=== PATIENT | male | born 1980 | race Caucasian/White ===

== ENCOUNTER 2022-05-02 07:15 | Day surgery (SDC) | payer OTHER ==
[~2022-05-02] VITALS: Ht 182.9 cm; Wt 98.0 kg
[2022-05-02] VITALS (219 sets, daily range): BP systolic 100–160; BP diastolic 55–114
[2022-05-02 07:39] LABS: HEMATOCRIT 45.2 % (39.0-50.0); HEMOGLOBIN 16.1 g/dl (14.0-18.0); IMMATURE GRANULOCYTES 0.2 % (0.0-5.0); MEAN CORPUSCULAR HGB 31.7 pG CALC (26.0-32.0); MEAN CORPUSCULAR HGB CONC 35.6 g/dL CAL (32.0-36.0); NEUT# 3.51 thou/uL (1.82-7.42); RED BLOOD COUNT 5.08 mill/uL (4.70-6.10); RED CELL DISTRI WIDTH 12.6 % (11.5-15.5)
[2022-05-02 08:13] LABS: ALBUMIN 4.4 g/dL (3.2-5.0); ALKALINE PHOSPHATASE 122 u/l (38-126); ANION GAP 11 (6-22 (CALC)); BILIRUBIN, TOTAL 0.3 mg/dL (0.0-1.4); BUN 18 mg/dL (9-20); BUN/CREATININE RATIO 20 (12-20 (CALC)); CARBON DIOXIDE 30 mmol/l (22-30); CHLORIDE 104 mmol/l (95-108); CREATININE 0.9 mg/dL (0.7-1.3); GFR FOR AFR.AMER. > 60 ML/MIN (>=60 (CALC)); GFR OTHER RACES > 60 ML/MIN (>=60 (CALC)); POTASSIUM 4.1 mmol/l (3.5-5.1); SGOT/AST 41 u/l (17-59); SODIUM 141 mmol/l (137-146); TOTAL PROTEIN 7.1 g/dL (6.3-8.2)
[2022-05-02] MEDS ORDERED: CLONIDINE0.1 MG PO (14:17)
[2022-05-02] MEDS ORDERED: NALTREXONE50 MG PO (14:17)
[2022-05-02] MEDS ORDERED: KLONOPIN2 MG PO (14:17)
[2022-05-03 03:29] VITALS: BP 137/89
[2022-05-03 05:50] LABS: HEMATOCRIT 47.1 % (39.0-50.0); HEMOGLOBIN 16.4 g/dl (14.0-18.0); IMMATURE GRANULOCYTES 0.1 % (0.0-5.0); MEAN CELL VOLUME 90.8 fL CALC (80.0-100.0); MEAN CORPUSCULAR HGB 31.6 pG CALC (26.0-32.0); MEAN CORPUSCULAR HGB CONC 34.8 g/dL CAL (32.0-36.0); NEUT# 12.23 thou/uL (1.82-7.42); RED BLOOD COUNT 5.19 mill/uL (4.70-6.10)
[2022-05-03 06:43] LABS: ALBUMIN 4.8 g/dL (3.2-5.0); ALKALINE PHOSPHATASE 119 u/l (38-126); ANION GAP 17 (6-22 (CALC)); BUN 12 mg/dL (9-20); BUN/CREATININE RATIO 16 (12-20 (CALC)); CARBON DIOXIDE 25 mmol/l (22-30); CHLORIDE 108 mmol/l (95-108); CREATININE 0.8 mg/dL (0.7-1.3); GFR FOR AFR.AMER. > 60 ML/MIN (>=60 (CALC)); GFR OTHER RACES > 60 ML/MIN (>=60 (CALC)); MAGNESIUM 2.4 mg/dL (1.6-2.3); POTASSIUM 3.8 mmol/l (3.5-5.1); SGOT/AST 45 u/l (17-59); SODIUM 147 mmol/l (137-146); TOTAL PROTEIN 7.4 g/dL (6.3-8.2)
[2022-05-03 06:51] LABS: BILIRUBIN, TOTAL 0.6 mg/dL (0.0-1.4)
[2022-05-03 08:29] VITALS: BP 160/84
[2022-05-03 08:41] VITALS: BP 160/84
== END 2022-05-03 16:34 | disposition home or self-care (01) | DRG 897 ==
LOC: EDSEX → MS2 07:15 → ANR 07:15 → EDBD 07:15 → MS2 07:16 → ANR 10:00
PROVIDERS: ATTEND Anesthesiology
DX: F11.20 Opioid dependence, uncomplicated (principal)
CPT/HCPCS: J2354; J3475